=== PATIENT | male | born 1945 | race Caucasian/White ===

== ENCOUNTER 2017-07-27 18:56 | Emergency (ER) | payer SELFPAY ==
[2017-07-27 19:57] LABS: % BASOPHILS 0.2 % (0.0-2.0); % EOSINOPHILS 2.8 % (0.0-5.0); % LYMPHOCYTES 26.7 % (20.0-50.0); % MONOCYTES 9.7 % (2.0-10.0); % NEUTROPHILS 60.6 % (40.0-80.0); EOSINOPHILE ABSOLUTE 0.2 Th/cmm (0.1-0.4); HEMOGLOBIN 13.5 gm/dL (12-16); LYMPHOCYTE ABSOLUTE 1.4 Th/cmm (1.5-3.0); MEAN CELL VOLUME 88.2 fl (80-99); MEAN CORPUSCULAR HEMOGLOBIN 29.1 pg (27.0-31.0); MEAN CORPUSCULAR HGB CONC 32.9 pg (28.0-36.0); MONOCYTE ABSOLUTE 0.5 Th/cmm (0.3-1.0); NEUTROPHILE ABSOLUTE 3.3 Th/cmm (1.8-8.0); PLATELET COUNT 267 Th/cmm (150-400); RED BLOOD COUNT 4.65 Mil/cmm (3.80-5.80); WHITE BLOOD COUNT 5.4 Th/cmm (4.8-10.8)
[2017-07-27 20:07] LABS: CHOLESTEROL 181 mg/dL (<200); HDL -HIGH DENSITY LIPOPROTEIN 42 mg/dL (23-92); TRIGLYCERIDES 225 mg/dL (<150)
--- NOTE | 2017-07-27 20:44 | ED Physician Chart ---
ED Chief Complaint/HPI - Patient Information Date Seen:: 07/27/17 Time Seen:: 20:25 Chief Complaint:: bleeding left foot History of Present Illness:: Patient had spontaneous bleeding from the medial aspect of the left foot starting at about noon. Bleeding apparently stopped then recurred. Patient stated the bleeding site squirted blood. No trauma. Allergies:: Allergies Allergy/AdvReac Type Severity Reaction Status Date / Time Penicillins [PCN] Allergy Verified 07/27/17 19:29 Vitals:: Vital Signs - 8 hr 07/27/17 19:30 Temp 97.9 F HR 72 RR 18 BP 132/65 O2 Sat % 97 Historian:: Patient Review:: Nurse's Note Reviewed ED Review of Systems - Review of Systems General/Constitutional: No fever, No chills Skin: Skin lesions Head: No headache Eyes: No loss of vision ENT: No earache Neck: No neck pain Cardio Vascular: No chest pain, No palpitations Pulmonary: No SOB GI: No nausea, No vomiting, No diarrhea G/U: No dysuria, No hematuria Musculoskeletal: No bone or joint pain Endocrine: No polyuria Psychiatric: No prior psych history, No depression, No anxiety Hematopoietic: No bruising Allergic/Immuno: No urticaria Neurological: No syncope, No focal symptoms ED Past Medical History - Past Medical History Past Medical History: DM Family History: None Social History: Non Smoker, No Alcohol Surgical History: None Psychiatricy History: None Medication: Reviewed ED Physical Exam - Physical Examination General/Constitutional: Well-developed, well-nourished, Alert, No distress Head: Atraumatic Eyes: Lids, conjuctiva normal, PERRL Other Skin comments:: Slight blood medial left heel; no bleeding; recent bleeding site could not be identified; stasis dermatitis both lower legs with prominent peeling of skin ENMT: External ears, nose nl Other ENMT comments:: Few teeth missing Neck: No nuchal rigidity Respiratory: Nl effort/Exclusion, Clear to Auscultation Cardio Vascular: RRR, No murmur, gallop, rubs GI: No tenderness/rebounding/guarding, No organomegaly, No hernia : No CVA tenderness Extremities: No edema Neuro/Psych: Alert/oriented ED Labs/Radiology/EKG Results - Lab Results Results: Laboratory Tests 07/27/17 07/27/17 07/27/17 19:43 19:43 19:43 WBC 5.4 RBC 4.65 Hgb 13.5 Hct 41.0 MCV 88.2 MCH 29.1 MCHC Differential 32.9 RDW 12.0 Plt Count 267 MPV 7.0 Neutrophils % 60.6 Lymphocytes % 26.7 Monocytes % 9.7 Eosinophils % 2.8 Basophils % 0.2 Uric Acid Magnesium 2.1 Troponin I Triglycerides 225 H Cholesterol 181 LDL Cholesterol Direct 121 HDL Cholesterol 42 07/27/17 07/27/17 19:43 19:43 WBC RBC Hgb Hct MCV MCH MCHC Differential RDW Plt Count MPV Neutrophils % Lymphocytes % Monocytes % Eosinophils % Basophils % Uric Acid 5.2 Magnesium Troponin I < 0.01 L Triglycerides Cholesterol LDL Cholesterol Direct HDL Cholesterol - Radiology Results Results: Left foot x-ray negative; chest x-ray negative ED Septic Shock - . Is Septic Shock (SBP<90, OR Lactate>4 mmol\L) present?: No - <6hrs of presentation: Vital Signs: Vital Signs - 8 hr 07/27/17 19:30 Temp 97.9 F HR 72 RR 18 BP 132/65 O2 Sat % 97 ED Reassessment (Disposition) - Reassessment Reassessment:: Patient did not wish to stay until his lab results were available. He wanted to catch a bus to [place]. Patient probably had a varicose vein which bled from his left heel. However the bleeding had stopped spontaneously and there was no reason to admit the patient. Patient signed out AGAINST MEDICAL ADVICE before laboratory tests returned. Reassessment Condition:: Improved - Diagnosis Diagnosis:: Bleeding varicose vein left heel - Patient Disposition Discharge/Transfer:: Against Medical Advice Condition at Disposition:: Stable, Improved
[2017-07-27 21:09] LABS: URINE MICROSCOPIC INDICATED? YES; URINE SOURCE CLEAN C
[2017-07-27 21:10] LABS: URINE BILIRUBIN NEGATIVE (NEGATIVE); URINE BLOOD NEGATIVE (NEGATIVE); URINE GLUCOSE (UA) >=1000 mg/dL (NEGATIVE); URINE KETONE NEGATIVE (NEGATIVE); URINE LEUKOCYTE ESTERASE NEGATIVE (NEGATIVE); URINE NITRATE NEGATIVE (NEGATIVE); URINE PH 5.5 (4.6 - 8.0); URINE PROTEIN NEGATIVE (NEGATIVE); URINE UROBILINOGEN 0.2 E.U./dL (0.2 - 1.0)
[2017-07-27 21:27] LABS: URINE CLARITY CLEAR (CLEAR); URINE COLOR YELLOW
[2017-07-27 21:28] LABS: URINE BACTERIA NONE SEEN /hpf (NONE SEEN); URINE EPITHELIAL CELLS NONE SEEN /lpf (FEW); URINE RBC NONE SEEN /hpf (0-5); URINE WBC NONE SEEN /hpf (0-5)
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
--- NOTE | 2017-07-28 08:23 | Diagnostic Imaging Report ---
CHEST X-RAY: AP view INDICATION: Pneumonia, cancer COMPARISON: None FINDINGS: Suboptimal lung volume are noted, limiting the exam. Chronic lung changes are seen with increased bibasilar lung markings. Atelectatic changes in the lungs are also noted. No focal consolidation or effusions. There may be a hiatal hernia. Heart size is normal. Degenerative changes of spine are noted. IMPRESSION: Suboptimal lung volume volumes and chronic lung changes with increased bibasilar markings favoring atelectatic changes. No focal consolidation identified. Possible retrocardiac hiatal hernia. Note that the sensitivity of x-rays for detection of malignancy is low. If there is clinical history are concerning for underlying malignancy, CT of the chest, preferably with IV contrast is recommended for further assessment.
--- NOTE | 2017-07-28 08:34 | Diagnostic Imaging Report ---
Left foot 3 views Indication: Fracture, gout Comparison: none Findings: Old healed fractures of the third and fourth metatarsals are noted. Mild to moderate degenerative changes are noted. No gross erosions identified. Distal Achilles spur and small plantar calcaneal spur is noted. Diffuse atherosclerosis is noted. No evidence of acute fracture or significant focal soft tissue swelling. Impression: No evidence of an acute fracture. Old healed third and fourth metatarsal shaft fractures are noted. Mild to moderate degenerative changes No gross erosions identified. Please correlate with clinical findings if there is concern for gout. Calcaneal spurring. In the setting of trauma, if clinical symptoms persist and there is continued concern for an occult fracture, follow up exams in 5-7 days is suggested.
== END 2017-07-27 20:50 | disposition left against medical advice (07) ==
LOC: ER 18:56
DX: I83.224 Varicose veins of left lower extremity with both ulcer of heel and midfoot and inflammation (principal); E11.9 Type 2 diabetes mellitus without complications; Z59.0 Homelessness
CPT/HCPCS: 36415-UA; 71045-TC; 73630-TC-LT; 80061-TC; 81001-TC; 83036-90; 83735-TC; 83880-TC; 84443-TC; 84484-TC; 84550-TC; 85025-TC; 93005